=== PATIENT | male | born 1990 | race Caucasian/White ===

== ENCOUNTER 2020-03-13 00:44 | Emergency (ER) | payer BC, SELFPAY ==
--- NOTE | ~2020-03-13 | CT_ITS ---
EXAMINATION: CT abdomen pelvis wo con DATE: 03/13/2020 01:48 INDICATION: Left flank pain TECHNIQUE: Computed tomography (CT) of the abdomen and pelvis was performed without intravenous contr ast. The dose-length product (DLP) was 935.75 mGy-cm. Automated exposure control and iterative recons truction technique were employed. COMPARISON: 09/07/2018 FINDINGS: Minimal dependent atelectasis is present in the lung bases. The heart size is normal. The l iver, spleen, pancreas, gallbladder, and adrenal glands are normal. There is a 2 mm stone in the blad honey. There is mild left hydroureteronephrosis. There is a 2 mm nonobstructing stone of the left kidne y lower pole. A fat-containing umbilical hernia is noted. The right kidney is unremarkable. No pathol ogically enlarged abdominal or pelvic lymph nodes are identified. There is no free intraperitoneal ga s or evidence of bowel obstruction. The appendix is normal. IMPRESSION: 1. 2 mm stone in the bladder with mild left hydroureteronephrosis, likely due to recent passage. 2. Nonobstructing left nephrolithiasis. Reviewed, dictated and finalized at location A. [employer] IMPRESSION: 1. 2 mm stone in the bladder with mild left hydroureteronephrosis, likely due t o recent passage. 2. Nonobstructing left nephrolithiasis.
[2020-03-13 00:47] VITALS: BP 130/83; PULSE 61; RESP 16; TEMP 35.5; O2SAT 99
[2020-03-13 01:17] LABS: Alanine Aminotransferase 109 U/L (4-50); Albumin Level 4.6 g/dL (3.5-5.1); Alkaline Phosphatase 81 U/L (38-126); Anion Gap 11 mmol/L (8-16); Aspartate Amino Transferase 78 U/L (17-59); Bilirubin,Total 0.4 mg/dL (0.2-1.3); Blood Urea Nitrogen 11 mg/dL (9-20); Calcium 9.6 mg/dL (8.4-10.2); Carbon Dioxide 24 mmol/L (22-30); Chloride 103 mmol/L (98-107); Estimated CRCL calculation 117 ml/min; Estimated Glomerular Filt Rate > 60; Glucose 126 mg/dL (75-110); Lipase 61 U/L (23-300); Potassium 3.9 mmol/L (3.4-5.0); Sodium 138 mmol/L (137-145)
[2020-03-13] MEDS: MORPHINE SULFATE (*CRX) 4 MG/ML INJ IV PUSH ×2 (01:20→03:09)
[2020-03-13] MEDS: ONDANSETRON INJ 4 MG/2 ML VIAL IV PUSH ×2 (01:21→03:10)
[2020-03-13] MEDS: KETOROLAC 30 MG/ML VIAL (*BKC) IV PUSH (01:21)
[2020-03-13 01:22] LABS: Basophils Absolute Auto 0.1 K/mm3 (0.0-0.1); Basophils Percent Auto 0.6 % (0.2-1.2); Eosinophils Absolute Auto 0.2 K/mm3 (0-0.3); Eosinophils Percent Auto 1.6 % (0-4.4); Hematocrit 47.5 % (42.0-52.0); Hemoglobin 16.2 g/dL (14.0-18.0); Immature Granulocyte Absolute 0.05 K/mm3 (0.00-0.031); Immature Granulocyte Percent A 0.5 % (0-0.5); Lymphocytes Absolute Auto 3.13 K/mm3 (0.9-3.2); Lymphocytes Percent Auto 29.6 % (18.3-44.2); Mean Corpuscular HGB Conc 34.1 g/dl (32-36); Mean Corpuscular Hemoglobin 30.2 pg (26-34); Mean Corpuscular Volume 88.6 fl (80-100); Mean Platelet Volume 9.1 fl (7.4-10.4); Monocytes Absolute Auto 0.8 K/mm3 (0.1-0.6); Monocytes Percent Auto 7.5 % (2.6-8.5); Neutrophils Absolute Auto 6.4 K/mm3 (1.3-6.7); Neutrophils Percent Auto 60.2 % (45.5-73.1); Platelet Count Result 410 k/mm3 (150-375); Red Blood Count 5.36 M/mm3 (4.6-6.20); Red Cell Distribution Width 11.7 % (11.5-14.5); White Blood Count 10.6 K/mm3 (4.5-10.0)
[2020-03-13] MEDS: SODIUM CHLORIDE 0.9% IV 1,000 ML 999 ML (01:25)
[2020-03-13 01:53] LABS: Add Urine Microscopic? YES; Amorphous Sediment Urine Few; Appearance Urine Turbid (Clear); Bilirubin Urine Negative (Negative); Blood Urine Negative (Negative); Glucose Urine UA Negative (Negative); Ketones Urine Negative (Negative); Leukocyte Esterase Ur Negative LEU/UL (Negative); Mucus Urine Heavy /lpf; Nitrate Urine Negative (Negative); Protein Urine 1+ mg/dL (Negative); Specific Grav Ur 1.038 (1.001-1.035); WBC Urine 0-3 /hpf
[2020-03-13 01:54] LABS: Color Urine Yellow (Yellow)
[2020-03-13 02:55] VITALS: BP 140/85; PULSE 59; RESP 12; O2SAT 98
--- NOTE | 2020-03-13 03:32 | ED.GENADULT ---
HPI - General Adult General Chief complaint: Urogenital-Male Stated complaint: back pain/ weird stuff in vomit Time Seen by Provider: 03/13/20 01:14 History of Present Illness HPI narrative: Patient is a 29-year-old gentleman who presents emerged from with chief complaint of left flank pain. Patient states the pain is sharp states is nonradiating reports that he has prior history of kidney stones but this one feels a little different than previous ones. The patient states that the nausea has not been improved by anything reports the pain is not worsened by anything reports he is unable to get comfortable in any position. Related Data Allergies Allergy/AdvReac Type Severity Reaction Status Date / Time No Known Allergies Allergy Verified 03/13/20 01:31 Review of Systems Review of Systems: Narrative: A 10 system review of systems was completed on the patient and is negative except for what is stated in the HPI. Nursing and ancillary documentation was reviewed. [facility] Past Medical History Medical History (Updated 03/13/20 @ 03:34 by Parviz Reece MD) Colitis Surgical History Surgical History No history of previous surgery Social History Social History Smoking status: Never smoker Comments Past medical history significant for kidney stone Exam Narrative: Exam Narrative: GENERAL: Well-appearing, well-nourished, and in moderate pain distress. HEAD: Normocephalic, atraumatic. EYES: PERRLA and EOMI. ENT: Nares clear, no rhinorrhea or epistaxis. Mucous membranes moist. NECK: Supple. CHEST: Clear to auscultation. No respiratory distress. HEART: Regular rate and rhythm. No murmur heard. Normal peripheral pulses. ABDOMEN: Soft, nontender, nondistended, normal active bowel sounds. EXTREMITIES: Normal range of motion. No edema. SKIN: Warm, dry, no rash. NEURO: No focal deficits. Alert and oriented x3. PSYCH: Normal mood and affect. Course Course Emergency Course: Pain was controlled in the emergency department the scan showed evidence of a 1 to 2 mm stone in the left UVJ Vital Signs Vital signs: Vital Signs Temperature 35.5 C L 03/13/20 00:47 Pulse Rate 61 03/13/20 00:47 Respiratory Rate 16 03/13/20 00:47 Blood Pressure 130/83 03/13/20 00:47 Pulse Oximetry 99 03/13/20 00:47 Temperature 35.5 C L 03/13/20 00:47 Pulse Rate 59 L 03/13/20 02:55 Respiratory Rate 12 03/13/20 02:55 Blood Pressure 140/85 03/13/20 02:55 Pulse Oximetry 98 03/13/20 02:55 Medical Decision Making Vital Signs Vital Signs: Vital Signs Temperature 35.5 C L 03/13/20 00:47 Pulse Rate 61 03/13/20 00:47 Respiratory Rate 16 03/13/20 00:47 Blood Pressure 130/83 03/13/20 00:47 Pulse Oximetry 99 03/13/20 00:47 Temperature 35.5 C L 03/13/20 00:47 Pulse Rate 59 L 03/13/20 02:55 Respiratory Rate 12 03/13/20 02:55 Blood Pressure 140/85 03/13/20 02:55 Pulse Oximetry 98 03/13/20 02:55 Lab Data Result diagrams: 03/13/20 01:01 03/13/20 01:01 Labs: Lab Results 03/13/20 03/13/20 03/13/20 Range/Units 01:01 01:01 01:31 WBC 10.6 H (4.5-10.0) K/mm3 RBC 5.36 (4.6-6.20) M/mm3 Hgb 16.2 (14.0-18.0) g/dL Hct 47.5 (42.0-52.0) % MCV 88.6 (80-100) fl MCH 30.2 (26-34) pg MCHC 34.1 (32-36) g/dl RDW 11.7 (11.5-14.5) % Plt Count 410 H (150-375) k/mm3 MPV 9.1 (7.4-10.4) fl Immature Gran % (Auto) 0.5 (0-0.5) % Neut % (Auto) 60.2 (45.5-73.1) % Lymph % (Auto) 29.6 (18.3-44.2) % Mcnairy % (Auto) 7.5 (2.6-8.5) % Eos % (Auto) 1.6 (0-4.4) % Baso % (Auto) 0.6 (0.2-1.2) % Lymph # (Auto) 3.13 (0.9-3.2) K/mm3 Mcnairy # (Auto) 0.8 H (0.1-0.6) K/mm3 Eos # (Auto) 0.2 (0-0.3) K/mm3 Baso # (Auto) 0.1 (0.0-0.1) K/mm3 Abs Immat Gran (auto) 0.05 H (0.00-0.03
[2020-03-13 03:50] VITALS: BP 146/91; PULSE 91; RESP 14; O2SAT 99
[2020-03-13] MEDS: TAMSULOSIN HCL 0.4 MG CAPSULE PO (03:50)
== END 2020-03-13 03:50 | disposition home or self-care (01) ==
PROVIDERS: Emergency Provider Emergency Medicine
DX: N13.2 Hydronephrosis with renal and ureteral calculous obstruction (principal)
CPT/HCPCS: 36415; 74176; 80053; 81001; 83690; 85025; 96361; 96374; 96375; 96376; 99284; A9270; J1885; J2270; J2405; J7030

== ENCOUNTER 2022-07-02 22:16 | Emergency (ER) | payer BC, SELFPAY ==
--- NOTE | ~2022-07-02 | CT_ITS ---
EXAMINATION: CT abdomen pelvis w con DATE: 07/03/2022 01:27 INDICATION: Hernia. TECHNIQUE: Computed tomography (CT) of the abdomen and pelvis was performed with 100 mL Omnipaque 350 intravenous contrast. Automated exposure control and iterative reconstruction technique were employe d. The dose-length product was 1598.92 mGy-cm. COMPARISON: CT abdomen and pelvis 03/13/2020 FINDINGS: The visualized portions of the lung bases are clear without pneumonia or pleural effusion. The heart size is normal. No pericardial effusion. There is a small sliding hiatal hernia. The liver, gallbladder, spleen, pancreas, adrenal glands, and left kidney are normal. There is an 8 mm cyst in right kidney. There are no dilated loops of bowel. The appendix is normal. There are no pathologicall y enlarged lymph nodes. There is no free intraperitoneal fluid. There is mild thoracolumbar spondylos is. IMPRESSION: 1. Small sliding hiatal hernia. Reviewed, dictated and finalized at location A.
--- NOTE | ~2022-07-02 | US_ITS ---
EXAMINATION: US scrotum doppler DATE: 07/02/2022 23:17 INDICATION: Testicular pain. TECHNIQUE: Grayscale and Doppler ultrasound images of the testes were obtained. COMPARISON: None. FINDINGS: The right testis measures 4.2 x 2.5 x 3.3 cm. The left testis measures 4.4 x 2.1 x 3.0 cm. There is normal vascular flow to both testes. The right epididymis is normal with normal vascular harriet w. The left epididymis demonstrates a 4 mm cyst. There is no varicocele or hydrocele. IMPRESSION: 1. No etiology for the patient's symptoms. Reviewed, dictated and finalized at location A.
[2022-07-02 22:17] VITALS: BP 115/97; PULSE 86; RESP 18; TEMP 36.2; O2SAT 99
[2022-07-02 23:41] VITALS: BP 137/100; PULSE 90; RESP 16; O2SAT 100
--- NOTE | 2022-07-03 00:14 | ED.GENADULT ---
HPI - General Adult General Chief complaint: Urogenital-Male Stated complaint: left testicular pain Time Seen by Provider: 07/02/22 23:36 Source: patient Mode of arrival: ambulatory Limitations: no limitations History of Present Illness HPI narrative: This is a 31-year-old male with no pertinent PMH who presents to the ED with chief complaint of left testicle pain for 3 days. Reports some tightness. Reports the pain out of 2 out of 10. States it comes and goes intermittently in severity but has never been very severe. Describes it as dull. Concern for some areas of swelling along the cord. He does note that the pain will radiate upwards into the left side of the pelvis into the lower abdomen, feels like it is on a line. Denies any skin changes. Denies any overt scrotal swelling. Denies penile pain. Denies any concern for STD. Denies urinary symptoms. Denies fevers, chills, nausea, vomiting. Related Data Allergies Allergy/AdvReac Type Severity Reaction Status Date / Time No Known Allergies Allergy Verified 07/02/22 22:16 Review of Systems Review of Systems: CONSTITUTIONAL: Denies fever, chills, or sweats. EYES: Denies visual changes, redness, or discharge. ENT: Denies rhinorrhea, congestion, sore throat, or otalgia. CARDIOVASCULAR: Denies chest pain, palpitations, or edema. RESPIRATORY: Denies cough or dyspnea. GASTROINTESTINAL: See HPI GENITOURINARY: See HPI SKIN: Denies rash or itching. MUSCULOSKELETAL: Denies back pain, joint pain, or myalgia. NEUROLOGIC: Denies headache, numbness, dizziness, or weakness. PSYCHIATRIC: Denies anxiety or depression. PMFSH Past Medical History Medical History (Updated 07/03/22 @ 03:12 by Liam Lima PA-C) Colitis Surgical History Surgical History No history of previous surgery Social History Social History Smoking status: Never smoker Exam Narrative: GENERAL: Well-appearing, well-nourished, and in no acute distress. HEAD: Normocephalic, atraumatic. EYES: PERRLA and EOMI. ENT: Nares clear, no rhinorrhea or epistaxis. Mucous membranes moist. Oropharynx without tonsillar hypertrophy exudate or other lesions. NECK: Supple. No adenopathy or masses. CHEST: No respiratory distress. Clear to auscultation. No wheezes rales or rhonchi HEART: Regular rate and rhythm. No murmur heard. Normal peripheral pulses. ABDOMEN: Soft, nontender, nondistended, normal active bowel sounds. : Testicles intact bilaterally. No swelling to the scrotum. No varicose veins. No masses palpated. Nontender bilaterally. Appreciate possible hernia with cough. No swelling or bulging in the pelvis. No relief of pain with elevation of the testicle. EXTREMITIES: Normal range of motion. No edema. SKIN: Warm, dry, no rash. No overt skin changes throughout the lower abdomen pelvis or scrotum. NEURO: Alert and oriented x3. No focal deficits. PSYCH: Normal mood and affect. Course Vital Signs Vital signs: Vital Signs Temperature 97.1 F L 07/02/22 22:17 Pulse Rate 86 07/02/22 22:17 Respiratory Rate 18 07/02/22 22:17 Blood Pressure 115/97 H 07/02/22 22:17 Pulse Oximetry 99 07/02/22 22:17 Oxygen Delivery Room Air 07/02/22 22:17 Temperature 97.1 F L 07/02/22 22:17 Pulse Rate 90 07/02/22 23:41 Respiratory Rate 16 07/02/22 23:41 Blood Pressure 127/83 07/03/22 03:00 Pulse Oximetry 100 07/02/22 23:41 Oxygen Delivery Room Air 07/02/22 22:17 Medical Decision Making [facility] Narrative Medical decision making narrative: This is a 31-year-old male presents the ED with chief complaint of left testicle discomfort x3 days. Reports feelings of tightness and dull pain. Vitals are stable. Exam is largely unremarkable. Some concern for hernia. Ultrasound shows no acute findings. CT scan of the abdomen and pelvis is unrevealing for hernia or any other acut
[2022-07-03 00:32] LABS: Basophils Absolute Auto 0.1 K/mm3 (0.0-0.1); Basophils Percent Auto 0.5 % (0.2-1.2); Eosinophils Absolute Auto 0.2 K/mm3 (0-0.3); Eosinophils Percent Auto 1.8 % (0-4.4); Hematocrit 45.8 % (42.0-52.0); Hemoglobin 15.3 g/dL (14.0-18.0); Immature Granulocyte Absolute 0.04 K/mm3 (0.00-0.031); Immature Granulocyte Percent A 0.4 % (0-0.5); Lymphocytes Absolute Auto 2.88 K/mm3 (0.9-3.2); Lymphocytes Percent Auto 31.2 % (18.3-44.2); Mean Corpuscular HGB Conc 33.4 g/dl (32-36); Mean Corpuscular Hemoglobin 30.3 pg (26-34); Mean Corpuscular Volume 90.7 fl (80-100); Mean Platelet Volume 9.1 fl (7.4-10.4); Monocytes Absolute Auto 0.7 K/mm3 (0.1-0.6); Monocytes Percent Auto 7.5 % (2.6-8.5); Neutrophils Absolute Auto 5.4 K/mm3 (1.3-6.7); Neutrophils Percent Auto 58.6 % (45.5-73.1); Platelet Count Result 354 k/mm3 (150-375); Red Blood Count 5.05 M/mm3 (4.6-6.20); Red Cell Distribution Width 11.8 % (11.5-14.5); White Blood Count 9.2 K/mm3 (4.5-10.0)
[2022-07-03 00:41] LABS: Anion Gap 9 mmol/L (8-16); Blood Urea Nitrogen 17 mg/dL (9-20); Calcium 9.6 mg/dL (8.4-10.2); Carbon Dioxide 26 mmol/L (22-30); Chloride 104 mmol/L (98-107); Estimated CRCL calculation 140 ml/min; Estimated Glomerular Filt Rate > 60; Glucose 97 mg/dL (65-110); Sodium 139 mmol/L (137-145)
[2022-07-03 03:00] VITALS: BP 127/83
== END 2022-07-03 03:19 | disposition home or self-care (01) ==
PROVIDERS: Emergency Provider Physician Assistant
DX: N50.812 Left testicular pain (principal)
CPT/HCPCS: 36415; 74177; 76870; 80048; 85025; 93976; 99284; Q9967